=== PATIENT | female | born 1955 | race Caucasian/White ===

== ENCOUNTER 2018-03-31 16:57 | Emergency (ER) | payer MEDICARE, MEDICAID ==
[2018-03-31] MEDS ORDERED: ONDANSETRON 4 MG TAB.RAPDIS PO ONE (17:19)
[2018-03-31] MEDS ORDERED: HYDROMORPHONE HCL INJ/PF 2 MG/ML AMPULE IM ONE (17:19)
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
--- NOTE | 2018-03-31 18:42 | RADIOLOGY REPORT (SQ) ---
EXAM DESCRIPTION: ELBOW LEFT OVER 2 VIEWS COMPLETED DATE/TIME: 03/31/2018 6:34 pm REASON FOR STUDY: FALL, PAIN, SWELLING COMPARISON: 05/29/2011. NUMBER OF VIEWS: Two views. TECHNIQUE: AP and lateral radiographic images acquired of the left elbow. LIMITATIONS: None. FINDINGS: MINERALIZATION: Normal. BONES: Supracondylar fracture of the distal humerus. Old fracture of the ulna. JOINT: Severe degenerative changes. Joint effusion. SOFT TISSUES: Posterior soft tissue swelling. No foreign body. OTHER: No other significant finding. IMPRESSION: 1. SUPRACONDYLAR FRACTURE OF THE DISTAL HUMERUS. 2. SEVERE DEGENERATIVE CHANGES IN THE ELBOW JOINT. OLD FRACTURE OF THE ULNA. TECHNICAL DOCUMENTATION: JOB ID: [id number]- All Rights Reserved Reading location - IP/workstation name: [email or web address]
--- NOTE | 2018-03-31 18:43 | RADIOLOGY REPORT (SQ) ---
EXAM DESCRIPTION: KNEE RIGHT 4 VIEWS COMPLETED DATE/TIME: 03/31/2018 6:34 pm REASON FOR STUDY: FALL, PAIN, SWELLING COMPARISON: None. NUMBER OF VIEWS: Four views. TECHNIQUE: AP, lateral, and both oblique radiographic images acquired of the right knee. LIMITATIONS: None. FINDINGS: MINERALIZATION: Normal. BONES: No acute fracture or dislocation. No worrisome bone lesions. JOINT: No effusion. SOFT TISSUES: No soft tissue swelling. No radio-opaque foreign body. OTHER: No other significant finding. IMPRESSION: NEGATIVE STUDY OF THE RIGHT KNEE. NO RADIOGRAPHIC EVIDENCE OF ACUTE INJURY. TECHNICAL DOCUMENTATION: JOB ID: [id number] [employer]- All Rights Reserved Reading location - IP/workstation name: [email or web address]
[2018-03-31 19:24] VITALS: BP 105/59
== END 2018-03-31 19:24 | disposition home or self-care (01) ==
LOC: ER 16:57
PROC: 2W39X1Z Immobilization of Left Upper Extremity using Splint (ICD-10-PCS; principal; 2018-03-31)
DX: S42.412A Displaced simple supracondylar fracture without intercondylar fracture of left humerus, initial encounter for closed fracture (principal); S80.01XA Contusion of right knee, initial encounter; M25.522 Pain in left elbow; M25.561 Pain in right knee; W01.0XXA Fall on same level from slipping, tripping and stumbling without subsequent striking against object, initial encounter; Y92.009 Unspecified place in unspecified non-institutional (private) residence as the place of occurrence of the external cause; F17.200 Nicotine dependence, unspecified, uncomplicated
CPT/HCPCS: 99283; 96372; 73080; 73564; 29105; A9270; J1170; S0119